=== PATIENT | male | born 1970 | race Caucasian/White ===

== ENCOUNTER 2021-03-16 14:57 | Emergency (ER) | payer OTHER, SELFPAY ==
[2021-03-16 15:16] VITALS: BP 166/93; PULSE 77; RESP 15; TEMP 36.7; O2SAT 98; BMI 34.8
--- NOTE | 2021-03-16 16:57 | ED_ITS ---
HPI - Abdominal Pain <DO Marta Saxena Last Filed: 03/17/21 07:25> General Chief Complaint: Abdominal Pain Stated Complaint: Gall Bladder Pain Time Seen by Provider: 03/16/21 16:48 Source: patient Mode of arrival: Ambulatory Limitations: no limitations History of Present Illness HPI narrative: Patient is a 51-year-old male presents with left-sided pain concerned that it might be his gallbladder. Has been ongoing for the last 3 days. Hurts every time he moves or breathes. It will come last night when he rolled over it. However today he is feeling little bit nauseated any had small episode chest discomfort. He has no prior history of coronary artery disease. He is not wanting her needing anything for nausea or pain at this time. The patient is also complaining of increased thirst, he thought it was just due to the heat however has continued. No prior history of diabetes. Related Data Allergies Allergy/AdvReac Type Severity Reaction Status Date / Time No Known Drug Allergies Allergy Verified 03/16/21 15:21 Review of Systems <DO Marta Saxena Last Filed: 03/17/21 07:25> Review of Systems Narrative: GENERAL: Denies chills, fatigue, malaise, fever, sweats, travel HEENT: Denies sinus pain, ear pain, sore throat, difficulty swallowing, neck pain RESPIRATORY: Denies dyspnea, cough, wheezing, hemoptysis, sputum. CARDIOVASCULAR: Denies chest pain, palpitations, orthopnea, edema GASTROINTESTINAL: Left upper quadrant pain, see HPI : Denies dysuria, frequency, incontinence, hematuria, urinary retention, flank pain. MUSCULOSKELETAL: Denies weakness, joint pain, or bony pain SKIN: No rash, no erythema, no pruritus NEUROLOGIC: Denies weakness, dizziness, headache, numbness, change in speech, confusion PSYCHIATRIC: No concerning psychosocial issues. 12 point review of systems is negative except for those stated above and HPI Patient History <DO Marta Saxena Last Filed: 03/17/21 07:25> Social History Smoking Status: Never smoker Smoking Status: Never smoker alcohol intake frequency: 3 or more drinks per day Substance Use Type: does not use Exam <DO Marta Saxena Last Filed: 03/17/21 07:25> Initial Vital Signs Initial Vital Signs: Vital Signs Temperature 98.0 F 03/16/21 15:16 Pulse Rate 77 03/16/21 15:16 Respiratory Rate 15 03/16/21 15:16 Blood Pressure 166/93 H 03/16/21 15:16 Pulse Oximetry 98 03/16/21 15:16 GENERAL: Alert pleasant 51-year-old male and in no acute distress. HEENT: Head atraumatic,EOMI, pupils reactive, face symmetric, moist mucous membranes CARDIOVASCULAR: Regular rate and rhythm without murmurs, rubs or gallops. RESPIRATORY: Breath sounds equal bilaterally, no wheezes rales or rhonchi. ABDOMEN: Soft, tender in left upper quadrant reproducible with palpation no guarding or rebound no splenomegaly negative right upper quadrant pain no Veras sign EXTREMITIES: Normal range of motion, no clubbing or edema. Neurovascularly intact NEUROLOGICAL: Alert and oriented x4.Normal gait and speech. SKIN: Warm, dry, no laceration, no petechiae, no rashes or lesions. <Devaughn Rader DO - Last Filed: 03/17/21 06:17> Initial Vital Signs Initial Vital Signs: Vital Signs Temperature 98.0 F 03/16/21 15:16 Pulse Rate 77 03/16/21 15:16 Respiratory Rate 15 03/16/21 15:16 Blood Pressure 166/93 H 03/16/21 15:16 Pulse Oximetry 98 03/16/21 15:16 Course <Radha Ibarra DO - Last Filed: 03/17/21 07:25> Orders Ordered: ED Orders 03/16/21 16:57 EKG-12 Lead Stat 03/16/21 16:58 XR chest 2V Stat 03/16/21 17:26 Complete Blood Count AUTO DIFF Stat Comprehensive Metabolic Panel Stat Lipase Stat Troponin & CK Cardiac Panel Stat Vital Signs Vital signs: Vital Signs - 8 hr 03/16/21 15:16 Temperature 98.0 F Pulse Rate 77 Respiratory Rate 15 Blood Pressure 166/93 H Pulse Oximetry 98 <Devaughn Rader DO - Last Filed: 03/17/21 06:17> Course Course Narrative: Initially patient was signed out to me by daytime provider but final disposition was settled prior to my caring for the patient Orders Ordered: ED Orders 03/16/21 16:57 EKG-12 Lead Stat 03/16/21 16:58 XR chest 2V Stat 03/16/21 17:26 Complete Blood Count AUTO DIFF Stat Comprehensive Metabolic Panel Stat Lipase Stat Troponin & CK Cardiac Panel Stat Vital Signs Vital signs: Vital Signs - 8 hr 03/16/21 15:16 Temperature 98.0 F Pulse Rate 77 Respiratory Rate 15 Blood Pressure 166/93 H Pulse Oximetry 98 MDM - Abdominal Pain <Radha Fred, - Last Filed: 03/17/21 07:25> Lab Data Result diagrams: 03/16/21 17:26 03/16/21 17:26 Labs: Lab Results 03/16/21 03/16/21 Range/Units 17:26 17:26 WBC 7.5 (4.5-11.0) X10^3/uL RBC 4.47 L (4.5-5.9) X10^6/uL Hgb 14.3 (13.5-17.5) g/dL Hct 41.8 (41-53) % MCV 93.4 (80-100) fL MCH 32.1 (26-34) PG MCHC 34.3 (30-36) % RDW 13.1 (11.6-14.8) % Plt Count 167 (150-400) X10^3/uL Neut % (Auto) 58.5 (50-75) % Lymph % (Auto) 28.3 (25-40) % [place] % (Auto) 11.2 (3-14) % Eos % (Auto) 1.5 L (2-4) % Baso % (Auto) 0.5 (0-2) % Neut # (Auto) 4400 (6314-8558) /uL Lymph # (Auto) 2100 (5550-4533) /uL [place] # (Auto) 800 (0-900) /uL Eos # (Auto) 100 (0-450) /uL Baso # (Auto) 0 (0-100) /uL Sodium 138 (137-145) mmol/L Potassium 3.9 (3.4-5.1) mmol/L Chloride 103 (98-107) mmol/L Carbon Dioxide 28 (22-32) mmol/L BUN 16 (9-20) mg/dL Creatinine 0.64 L (0.66-1.25) mg/dL Estimated GFR > 60.0 (>60) mL/min BUN/Creatinine Ratio 25.0 H (6-22) Glucose 107 H (70-100) mg/dL Calcium 9.8 (8.4-10.2) mg/dL Total Bilirubin 0.9 (0.2-1.3) mg/dL AST 53 (17-59) IU/L ALT 28 (<50) IU/L Alkaline Phosphatase 67 (38-126) U/L Total Creatine Kinase 202 H (55-170) U/L CK-MB (CK-2) 0.90 (<2.37) ng/mL CK-MB (CK-2) Rel Index 0.4 L (1.5-5.0) % Troponin I < 0.012 (0.01-0.034) ng/mL Total Protein 8.2 (6.3-8.2) g/dL Albumin 4.5 (3.5-5.0) g/dL Globulin 3.7 (1.7-4.1) g/dL Albumin/Globulin Ratio 1.2 (1.0-2.8) Lipase 112 (23-300) U/L Imaging Data Chest x-ray: Radiologist's Impression: PROCEDURE: XR CHEST 2V INDICATIONS: left sided pain TECHNIQUE: 2 views of the chest were acquired. COMPARISON: None. FINDINGS: Surgical changes and devices: None. Lungs and pleura: Lungs are clear. No pleural effusions or pneumothorax. Mediastinum: Mediastinal contours are normal. Heart size is normal. Bones and chest wall: No suspicious bony abnormalities. Soft tissues appear unremarkable. IMPRESSION: No evidence acute pulmonary process. Dictated by: Tanner Amaral M.D. on 03/16/2021 at 16:16 ECG Data Interpretation: Normal sinus rhythm rate 68 p.r. interval 170 QRS [address] changes or T-wave inversions, no priors to compare MDM Narrative Medical decision making narrative: Patient's pain is reproducible with movement has been ongoing for about 3 days. However with mild nausea and mild chest pain today chest pain workup was done. <Devaughn Rader DO - Last Filed: 03/17/21 06:17> Lab Data Labs: Lab Results 03/16/21 03/16/21 Range/Units 17:26 17:26 WBC 7.5 (4.5-11.0) X10^3/uL RBC 4.47 L (4.5-5.9) X10^6/uL Hgb 14.3 (13.5-17.5) g/dL Hct 41.8 (41-53) % MCV 93.4 (80-100) fL MCH 32.1 (26-34) PG MCHC 34.3 (30-36) % RDW 13.1 (11.6-14.8) % Plt Count 167 (150-400) X10^3/uL Neut % (Auto) 58.5 (50-75) % Lymph % (Auto) 28.3 (25-40) % [place] % (Auto) 11.2 (3-14) % Eos % (Auto) 1.5 L (2-4) % Baso % (Auto) 0.5 (0-2) % Neut # (Auto) 4400 (1675-8369) /uL Lymph # (Auto) 2100 (0062-7063) /uL [place] # (Auto) 800 (0-900) /uL Eos # (Auto) 100 (0-450) /uL Baso # (Auto) 0 (0-100) /uL Sodium 138 (137-145) mmol/L Potassium 3.9 (3.4-5.1) mmol/L Chloride 103 (98-107) mmol/L Carbon Dioxide 28 (22-32) mmol/L BUN 16 (9-20) mg/dL Creatinine 0.64 L (0.66-1.25) mg/dL Estimated GFR > 60.0 (>60) mL/min BUN/Creatinine Ratio 25.0 H (6-22) Glucose 107 H (70-100) mg/dL Calcium 9.8 (8.4-10.2) mg/dL Total Bilirubin 0.9 (0.2-1.3) mg/dL AST 53 (17-59) IU/L ALT 28 (<50) IU/L Alkaline Phosphatase 67 (38-126) U/L Total Creatine Kinase 202 H (55-170) U/L CK-MB (CK-2) 0.90 (<2.37) ng/mL CK-MB (CK-2) Rel Index 0.4 L (1.5-5.0) % Troponin I < 0.012 (0.01-0.034) ng/mL Total Protein 8.2 (6.3-8.2) g/dL Albumin 4.5 (3.5-5.0) g/dL Globulin 3.7 (1.7-4.1) g/dL Albumin/Globulin Ratio 1.2 (1.0-2.8) Lipase 112 (23-300) U/L Discharge Plan Departure Patient Disposition: Home Clinical Impression: Acute costochondritis Instructions: DI for Costochondritis Activity Restrictions/Additional Instructions: *You have been diagnosed with costochondritis *What to do: At this time blood work is overall reassuring. Exam suggests that this is likely musculoskeletal. Recommend ice or heat whichever makes it feels better *Continue to take medications as directed Ibuprofen 600 mg every 6-8 hours if needed for [id number] pain *Follow up with your primary care provider in 2-3 days *Return to ER if you should have increasing pain, shortness of breaths or any new, worsening or concerning symptoms
[2021-03-16 17:30] VITALS: BP 165/93; PULSE 69; RESP 18
[2021-03-16 17:45] LABS: Add Manual Diff / Slide Review NO; Basophils Absolute Auto 0 /uL (0-100); Basophils Percent Auto 0.5 % (0-2); Eosinophils Absolute Auto 100 /uL (0-450); Eosinophils Percent Auto 1.5 % (2-4); Hematocrit 41.8 % (41-53); Hemoglobin 14.3 g/dL (13.5-17.5); Lymphocytes Absolute Auto 2100 /uL (1100-4500); Lymphocytes Percent Auto 28.3 % (25-40); Mean Corpuscular HGB Conc 34.3 % (30-36); Mean Corpuscular Hemoglobin 32.1 PG (26-34); Mean Corpuscular Volume 93.4 fL (80-100); Monocytes Absolute Auto 800 /uL (0-900); Monocytes Percent Auto 11.2 % (3-14); Neutrophils Absolute Auto 4400 /uL (1500-7000); Neutrophils Percent Auto 58.5 % (50-75); Platelet Count 167 X10^3/uL (150-400); Red Blood Cell Count 4.47 X10^6/uL (4.5-5.9); Red Cell Distribution Width 13.1 % (11.6-14.8); White Blood Cell Count 7.5 X10^3/uL (4.5-11.0)
[2021-03-16 17:57] LABS: Alanine Aminotransferase 28 IU/L (<50); Albumin 4.5 g/dL (3.5-5.0); Albumin Globulin Ratio 1.2 (1.0-2.8); Alkaline Phosphatase 67 U/L (38-126); Aspartate Aminotransferase 53 IU/L (17-59); Bilirubin Total 0.9 mg/dL (0.2-1.3); Blood Urea Nitrogen 16 mg/dL (9-20); Calcium 9.8 mg/dL (8.4-10.2); Carbon Dioxide 28 mmol/L (22-32); Chloride 103 mmol/L (98-107); Creatine Kinase 202 U/L (55-170); Estimated Glomerular Filt Rate > 60.0 mL/min (>60); Globulin 3.7 g/dL (1.7-4.1); Glucose 107 mg/dL (70-100); Lipase 112 U/L (23-300); Potassium 3.9 mmol/L (3.4-5.1); Sodium 138 mmol/L (137-145); Total Protein 8.2 g/dL (6.3-8.2)
[2021-03-16 17:59] VITALS: BP 144/84; PULSE 69; RESP 16; O2SAT 99
[2021-03-16 18:08] LABS: Troponin I < 0.012 ng/mL (0.01-0.034)
[2021-03-16 18:13] LABS: CKMB % Relative Index 0.4 % (1.5-5.0); HEMOLYSIS 21 (0-50)
== END 2021-03-16 18:41 | disposition home or self-care (01) ==
PROVIDERS: Emergency Provider Emergency Medicine
DX: M94.0 Chondrocostal junction syndrome [Tietze] (principal); R11.0 Nausea
CPT/HCPCS: 36415; 71046; 80053; 82550; 82553; 83690; 84484; 85025; 93005; 99284

== ENCOUNTER 2022-06-14 20:36 | Emergency (ER) | payer OTHER, SELFPAY ==
[2022-06-14] VITALS (14 sets, daily range): BP systolic 136–212; BP diastolic 74–118; PULSE 70–80; RESP 14–22; TEMP 37.3; O2SAT 95–98; BMI 34.8
--- NOTE | 2022-06-14 20:46 | DI.RAD.S_ITS ---
PROCEDURE: XR CHEST 1V INDICATIONS: chest pain TECHNIQUE: One view of the chest was acquired. COMPARISON: [facility], CR, XR CHEST 2V, 03/16/2021, 16:55. FINDINGS: Surgical changes and devices: Surgical hardware in visualized mid cervical spine is seen. Lungs and pleura: Lungs are clear. No pleural effusions or pneumothorax. Mediastinum: Mediastinal contours appear normal. Heart size is normal. Bones and chest wall: No suspicious bony lesions. Overlying soft tissues appear unremarkable. IMPRESSION: No acute cardiopulmonary pathology. Dictated by: Raymond Briceño M.D. on 06/14/2022 at 21:02 Approved by: Raymond Briceño M.D. on 06/14/2022 at 21:03
--- NOTE | 2022-06-14 20:49 | PC.NURSE ---
pt c/o cp that started 2 days ago with dizziness, h/a, and diaphoresis, pt has been taking TUMS without relief. pt drinks alcohol 4-5 drinks/day but has not had any in the last 4 days pt took his BP tonight which was elevated so he decided to come to the ED
--- NOTE | 2022-06-14 20:58 | ED.CHESTPAIN ---
HPI - Chest Pain <Bernard Casanova DO - Last Filed: 06/16/22 04:14> General Chief Complaint: Chest Pain Stated Complaint: chest pain Time Seen by Provider: 06/14/22 20:51 Source: patient Mode of arrival: Ambulatory Limitations: no limitations Limitations: no limitations History of Present Illness HPI narrative: Patient is a 52-year-old male. Denies any prior diagnosed medical problems. Here for evaluation of shortness of breath and left-sided chest discomfort. He is had mild chest discomfort off and on for the past couple days however earlier in the day today the symptoms seem to get worse. He states that whenever he would walk he would get the discomfort. He was out to dinner with his and started to become short of breath. He stated that they walked back to the boat where they were staying this evening and his symptoms started to worsen. He had to stop because he was having problems breathing. They decided to come to the emergency department and as they were walking back down the dock he had a. Several more times. He states he has a fullness in his throat. Also had a period of time where he became diaphoretic and lightheaded. At the time of my exam he stated that his symptoms have greatly improved although he did have a small amount of chest discomfort. He was no longer short of breath. Patient denies any history of high blood pressure. Related Data Allergies Allergy/AdvReac Type Severity Reaction Status Date / Time No Known Drug Allergies Allergy Verified 03/16/21 15:21 Review of Systems <Bernard Casanova DO - Last Filed: 06/16/22 04:14> Review of Systems ROS Unobtainable: All systems reviewed & are unremarkable except as noted in HPI and below Patient History <Bernard Casanova DO - Last Filed: 06/16/22 04:14> Medical History Patient denies medical problems Social History Smoking Status: Never smoker Smoking Status: Never smoker alcohol intake frequency: 3 or more drinks per day Substance Use Type: does not use Exam <Bernard Casanova DO - Last Filed: 06/16/22 04:14> Initial Vital Signs Initial Vital Signs: Vital Signs Temperature 99.2 F 06/14/22 20:43 Pulse Rate 77 06/14/22 20:43 Respiratory Rate 22 06/14/22 20:43 Blood Pressure 212/118 H 06/14/22 20:43 Pulse Oximetry 98 06/14/22 20:43 Oxygen Delivery Method 06/14/22 20:43 Const General: cooperative, comfortable and well developed [facility] Head: normal to inspection and normocephalic Eyes General: Yes appearance normal, both eyes and all related structures Chest Chest: No crepitus and No tenderness Resp Effort & Inspection: normal respiratory effort Auscultation: clear to auscultation bilaterally Cardio Rate: regular rate Rhythm: regular rhythm GI Inspection: normal to inspection Palpation: soft and No tender Skin General: no rashes or lesions noted Neuro General: patient alert, patient awake, patient oriented x3 and moves all extremities Cognition: normal cognition Speech: speech normal Extrem General: normal to inspection, capillary refill normal and No edema Psych Appearance: grossly normal and well kempt <Delmy Orozco MD - Last Filed: 06/16/22 07:16> Initial Vital Signs Initial Vital Signs: Vital Signs Temperature 99.2 F 06/14/22 20:43 Pulse Rate 77 06/14/22 20:43 Respiratory Rate 22 06/14/22 20:43 Blood Pressure 212/118 H 06/14/22 20:43 Pulse Oximetry 98 06/14/22 20:43 Oxygen Delivery Method 06/14/22 20:43 Scores <Bernard Casanova DO - Last Filed: 06/16/22 04:14> HEART Score Heart Score history: Highly Suspicious Heart Score EKG: Non-Specific repolarization disturbance Heart Score Age: 45-64 years old Heart Score risk factors: No known risk factors Heart Score troponin: < or = to normal limit Heart Score Total: 4 <Delmy Orozco MD - Last Filed: 06/16/22 07:16> HEART Score Heart Score Total: 4 Course <Bernard Casanova DO - Last Filed: 06/16/22 04:14> Orders Ordered: ED Orders 06/16/22 04:29 Basic Metabolic Panel Stat Complete Blood Count AUTO DIFF Stat PTT [Partial Thromboplastin Time] Stat Troponin I Stat Discontinued Medications Aspirin (Aspirin 81 Mg Chew Tab) 324 mg PO NOW ONE Stop: 06/14/22 21:00 Last Admin: 06/14/22 21:13 Dose: 324 mg Documented By: NYDIA Bacitracin (Bacitracin Oint 0.9 Gm Pckt) 3 applic TOP NOW ONE Stop: 06/15/22 18:30 Last Admin: 06/15/22 19:33 Dose: Not Given Documented By: MAURA Heparin Sodium (Porcine) (Heparin 5,000 Unit/Ml Vial) 5,000 unit IV NOW ONE Stop: 06/14/22 21:36 Last Admin: 06/14/22 21:55 Dose: 5,000 unit Documented By: ASIA Heparin Sodium/Dextrose (Heparin Drip) 25,000 unit in 500 mls @ 27.216 mls/hr IV CONT COLE; Protocol Last Titration: 06/16/22 05:06 Dose: 10.98 units/kg/hr, 24.9 mls/hr Documented By: Titration: 06/15/22 22:28 Dose: 10.57 units/kg/hr, 23.977 mls/hr Documented By: Admin: 06/15/22 20:15 Dose: 10.13 units/kg/hr, 22.977 mls/hr Documented By: Titration: 06/15/22 20:15 Dose: 0 units/kg/hr, 0 mls/hr Documented By: Titration: 06/15/22 16:35 Dose: 10.13 units/kg/hr, 22.977 mls/hr Documented By: Titration: 06/15/22 10:38 Dose: 9.69 units/kg/hr, 21.977 mls/hr Documented By: Titration: 06/15/22 05:22 Dose: 9.26 units/kg/hr, 21 mls/hr Documented By: Titration: 06/15/22 04:20 Dose: 0 units/kg/hr, 0 mls/hr Documented By: Admin: 06/14/22 21:55 Dose: 12 units/kg/hr, 27.216 mls/hr Documented By: ASIA Heparin Sodium/Dextrose (Heparin Drip) 25,000 unit in 500 mls @ 22.974 mls/hr IV CONT COLE; Protocol Nitroglycerin (Nitroglycerin 0.4 Mg Sl Tab) 0.4 mg SL [id number] PRN PRN Reason: Chest Pain Vital Signs Vital signs: Vital Signs - 8 hr 06/15/22 23:30 06/16/22 00:00 06/16/22 00:00 Pulse Rate 72 67 Respiratory Rate 18 19 Blood Pressure 150/89 H Pulse Oximetry 95 96 Oxygen Delivery Method 06/16/22 00:30 06/16/22 01:00 06/16/22 01:00 Pulse Rate 62 63 Respiratory Rate 14 16 Blood Pressure 142/75 H Pulse Oximetry 94 95 Oxygen Delivery Method Room Air 06/16/22 01:30 06/16/22 02:00 06/16/22 02:00 Pulse Rate 58 L 65 Respiratory Rate 15 16 Blood Pressure 158/75 H Pulse Oximetry 94 94 Oxygen Delivery Method 06/16/22 02:30 06/16/22 03:00 06/16/22 03:00 Pulse Rate 62 69 76 Respiratory Rate 16 18 22 Blood Pressure 158/91 H Pulse Oximetry 98 98 97 Oxygen Delivery Method 06/16/22 03:30 06/16/22 04:00 06/16/22 04:00 Pulse Rate 67 62 Respiratory Rate 16 13 Blood Pressure 132/75 Pulse Oximetry 97 98 Oxygen Delivery Method 06/16/22 04:26 06/16/22 04:26 06/16/22 04:27 Pulse Rate 66 65 Respiratory Rate 16 11 L Blood Pressure 132/76 Pulse Oximetry 98 98 Oxygen Delivery Method 06/16/22 04:27 06/16/22 04:28 06/16/22 04:28 Pulse Rate 69 Respiratory Rate 16 Blood Pressure 133/75 137/78 Pulse Oximetry 97 Oxygen Delivery Method 06/16/22 04:30 06/16/22 05:00 06/16/22 05:00 Pulse Rate 66 56 L Respiratory Rate 15 13 Blood Pressure 123/81 Pulse Oximetry 97 96 Oxygen Delivery Method 06/16/22 05:30 06/16/22 06:00 06/16/22 06:00 Pulse Rate 69 66 Respiratory Rate 20 16 Blood Pressure 126/73 Pulse Oximetry 97 98 Oxygen Delivery Method <Delmy Orozco MD - Last Filed: 06/16/22 07:16> Orders Ordered: ED Orders 06/16/22 04:29 Basic Metabolic Panel Stat Complete Blood Count AUTO DIFF Stat PTT [Partial Thromboplastin Time] Stat Troponin I Stat Discontinued Medications Aspirin (Aspirin 81 Mg Chew Tab) 324 mg PO NOW ONE Stop: 06/14/22 21:00 Last Admin: 06/14/22 21:13 Dose: 324 mg Documented By: NYDIA Bacitracin (Bacitracin Oint 0.9 Gm Pckt) 3 applic TOP NOW ONE Stop: 06/15/22 18:30 Last Admin: 06/15/22 19:33 Dose: Not Given Documented By: MAURA Heparin Sodium (Porcine) (Heparin 5,000 Unit/Ml Vial) 5,000 unit IV NOW ONE Stop: 06/14/22 21:36 Last Admin: 06/14/22 21:55 Dose: 5,000 unit Documented By: ASIA Heparin Sodium/Dextrose (Heparin Drip) 25,000 unit in 500 mls @ 27.216 mls/hr IV CONT COLE; Protocol Last Titration: 06/16/22 05:06 Dose: 10.98 units/kg/hr, 24.9 mls/hr Documented By: Titration: 06/15/22 22:28 Dose: 10.57 units/kg/hr, 23.977 mls/hr Documented By: Admin: 06/15/22 20:15 Dose: 10.13 units/kg/hr, 22.977 mls/hr Documented By: Titration: 06/15/22 20:15 Dose: 0 units/kg/hr, 0 mls/hr Documented By: Titration: 06/15/22 16:35 Dose: 10.13 units/kg/hr, 22.977 mls/hr Documented By: Titration: 06/15/22 10:38 Dose: 9.69 units/kg/hr, 21.977 mls/hr Documented By: Titration: 06/15/22 05:22 Dose: 9.26 units/kg/hr, 21 mls/hr Documented By: Titration: 06/15/22 04:20 Dose: 0 units/kg/hr, 0 mls/hr Documented By: Admin: 06/14/22 21:55 Dose: 12 units/kg/hr, 27.216 mls/hr Documented By: ASIA Heparin Sodium/Dextrose (Heparin Drip) 25,000 unit in 500 mls @ 22.974 mls/hr IV CONT COLE; Protocol Nitroglycerin (Nitroglycerin 0.4 Mg Sl Tab) 0.4 mg SL [id number] PRN PRN Reason: Chest Pain Vital Signs Vital signs: Vital Signs - 8 hr 06/15/22 23:30 06/16/22 00:00 06/16/22 00:00 Pulse Rate 72 67 Respiratory Rate 18 19 Blood Pressure 150/89 H Pulse Oximetry 95 96 Oxygen Delivery Method 06/16/22 00:30 06/16/22 01:00 06/16/22 01:00 Pulse Rate 62 63 Respiratory Rate 14 16 Blood Pressure 142/75 H Pulse Oximetry 94 95 Oxygen Delivery Method Room Air 06/16/22 01:30 06/16/22 02:00 06/16/22 02:00 Pulse Rate 58 L 65 Respiratory Rate 15 16 Blood Pressure 158/75 H Pulse Oximetry 94 94 Oxygen Delivery Method 06/16/22 02:30 06/16/22 03:00 06/16/22 03:00 Pulse Rate 62 69 76 Respiratory Rate 16 18 22 Blood Pressure 158/91 H Pulse Oximetry 98 98 97 Oxygen Delivery Method 06/16/22 03:30 06/16/22 04:00 06/16/22 04:00 Pulse Rate 67 62 Respiratory Rate 16 13 Blood Pressure 132/75 Pulse Oximetry 97 98 Oxygen Delivery Method 06/16/22 04:26 06/16/22 04:26 06/16/22 04:27 Pulse Rate 66 65 Respiratory Rate 16 11 L Blood Pressure 132/76 Pulse Oximetry 98 98 Oxygen Delivery Method 06/16/22 04:27 06/16/22 04:28 06/16/22 04:28 Pulse Rate 69 Respiratory Rate 16 Blood Pressure 133/75 137/78 Pulse Oximetry 97 Oxygen Delivery Method 06/16/22 04:30 06/16/22 05:00 06/16/22 05:00 Pulse Rate 66 56 L Respiratory Rate 15 13 Blood Pressure 123/81 Pulse Oximetry 97 96 Oxygen Delivery Method 06/16/22 05:30 06/16/22 06:00 06/16/22 06:00 Pulse Rate 69 66 Respiratory Rate 20 16 Blood Pressure 126/73 Pulse Oximetry 97 98 Oxygen Delivery Method MDM - Chest Pain <Bernard Casanova DO - Last Filed: 06/16/22 04:14> Lab Data Attestation: I reviewed the patient's lab results. Result diagrams: 06/16/22 04:29 06/16/22 04:29 Labs: Lab Results 06/14/22 06/14/22 06/14/22 Range/Units 20:40 20:40 20:40 WBC 11.1 H (4.5-11.0) X10^3/uL RBC 4.94 (4.5-5.9) X10^6/uL Hgb 16.0 (13.5-17.5) g/dL Hct 46.1 (41-53) % MCV 93.3 (80-100) fL MCH 32.3 (26-34) PG MCHC 34.7 (30-36) % RDW 12.8 (11.6-14.8) % Plt Count 173 (150-400) X10^3/uL Neut % (Auto) 57.7 (50-75) % Lymph % (Auto) 29.7 (25-40) % [place] % (Auto) 10.1 (3-14) % Eos % (Auto) 1.9 L (2-4) % Baso % (Auto) 0.6 (0-2) % Neut # (Auto) 6400 (3670-5839) /uL Lymph # (Auto) 3300 (6882-9980) /uL [place] # (Auto) 1100 H (0-900) /uL Eos # (Auto) 200 (0-450) /uL Baso # (Auto) 100 (0-100) /uL PT 12.9 H (10.1-12.7) SECONDS INR 1.1 (0.9-1.3) APTT (26-36) SECONDS Sodium 136 L (137-145) mmol/L Potassium 3.7 (3.4-5.1) mmol/L Chloride 99 (98-107) mmol/L Carbon Dioxide 26 (22-32) mmol/L BUN 11 (9-20) mg/dL Creatinine 0.81 (0.66-1.25) mg/dL Estimated GFR > 60 (>60) mL/min BUN/Creatinine Ratio 13.6 (6-22) Glucose 117 H (70-100) mg/dL Calcium 9.9 (8.4-10.2) mg/dL Magnesium 2.0 (1.6-2.3) mg/dL Total Bilirubin 1.2 (0.2-1.3) mg/dL AST 57 (17-59) IU/L ALT 38 (<50) IU/L Alkaline Phosphatase 52 (38-126) U/L Total Creatine Kinase 107 (55-170) U/L CK-MB (CK-2) 1.06 (<2.37) ng/mL CK-MB (CK-2) Rel Index 1.0 L (1.5-5.0) % Troponin I 0.035 H (0.01-0.034) ng/mL Total Protein 8.8 H (6.3-8.2) g/dL Albumin 4.7 (3.5-5.0) g/dL Globulin 4.1 (1.7-4.1) g/dL Albumin/Globulin Ratio 1.1 (1.0-2.8) Lipase 135 (23-300) U/L SARS-CoV-2 (PCR) (Negative) 06/14/22 06/14/22 06/14/22 Range/Units 20:40 21:42 22:50 WBC (4.5-11.0) X10^3/uL RBC (4.5-5.9) X10^6/uL Hgb (13.5-17.5) g/dL Hct (41-53) % MCV (80-100) fL MCH (26-34) PG MCHC (30-36) % RDW (11.6-14.8) % Plt Count (150-400) X10^3/uL Neut % (Auto) (50-75) % Lymph % (Auto) (25-40) % [place] % (Auto) (3-14) % Eos % (Auto) (2-4) % Baso % (Auto) (0-2) % Neut # (Auto) (2735-7917) /uL Lymph # (Auto) (2397-8884) /uL [place] # (Auto) (0-900) /uL Eos # (Auto) (0-450) /uL Baso # (Auto) (0-100) /uL PT (10.1-12.7) SECONDS INR (0.9-1.3) APTT 33 (26-36) SECONDS Sodium (137-145) mmol/L Potassium (3.4-5.1) mmol/L Chloride (98-107) mmol/L Carbon Dioxide (22-32) mmol/L BUN (9-20) mg/dL Creatinine (0.66-1.25) mg/dL Estimated GFR (>60) mL/min BUN/Creatinine Ratio (6-22) Glucose (70-100) mg/dL Calcium (8.4-10.2) mg/dL Magnesium (1.6-2.3) mg/dL Total Bilirubin (0.2-1.3) mg/dL AST (17-59) IU/L ALT (<50) IU/L Alkaline Phosphatase (38-126) U/L Total Creatine Kinase 93 (55-170) U/L CK-MB (CK-2) TNP (<2.37) ng/mL CK-MB (CK-2) Rel Index TNP (1.5-5.0) % Troponin I 0.060 H (0.01-0.034) ng/mL Total Protein (6.3-8.2) g/dL Albumin (3.5-5.0) g/dL Globulin (1.7-4.1) g/dL Albumin/Globulin Ratio (1.0-2.8) Lipase (23-300) U/L SARS-CoV-2 (PCR) Negative (Negative) 06/15/22 06/15/22 06/15/22 Range/Units 03:45 03:45 09:58 WBC (4.5-11.0) X10^3/uL RBC (4.5-5.9) X10^6/uL Hgb (13.5-17.5) g/dL Hct (41-53) % MCV (80-100) fL MCH (26-34) PG MCHC (30-36) % RDW (11.6-14.8) % Plt Count (150-400) X10^3/uL Neut % (Auto) (50-75) % Lymph % (Auto) (25-40) % [place] % (Auto) (3-14) % Eos % (Auto) (2-4) % Baso % (Auto) (0-2) % Neut # (Auto) (2824-9767) /uL Lymph # (Auto) (7226-4599) /uL [place] # (Auto) (0-900) /uL Eos # (Auto) (0-450) /uL Baso # (Auto) (0-100) /uL PT (10.1-12.7) SECONDS INR (0.9-1.3) APTT 158 H* D 45 H D (26-36) SECONDS Sodium (137-145) mmol/L Potassium (3.4-5.1) mmol/L Chloride (98-107) mmol/L Carbon Dioxide (22-32) mmol/L BUN (9-20) mg/dL Creatinine (0.66-1.25) mg/dL Estimated GFR (>60) mL/min BUN/Creatinine Ratio (6-22) Glucose (70-100) mg/dL Calcium (8.4-10.2) mg/dL Magnesium (1.6-2.3) mg/dL Total Bilirubin (0.2-1.3) mg/dL AST (17-59) IU/L ALT (<50) IU/L Alkaline Phosphatase (38-126) U/L Total Creatine Kinase 74 (55-170) U/L CK-MB (CK-2) TNP (<2.37) ng/mL CK-MB (CK-2) Rel Index TNP (1.5-5.0) % Troponin I 0.049 H (0.01-0.034) ng/mL Total Protein (6.3-8.2) g/dL Albumin (3.5-5.0) g/dL Globulin (1.7-4.1) g/dL Albumin/Globulin Ratio (1.0-2.8) Lipase (23-300) U/L SARS-CoV-2 (PCR) (Negative) 06/15/22 06/15/22 06/15/22 Range/Units 09:58 09:58 16:05 WBC 6.4 (4.5-11.0) X10^3/uL RBC 4.94 (4.5-5.9) X10^6/uL Hgb 16.1 (13.5-17.5) g/dL Hct 46.1 (41-53) % MCV 93.4 (80-100) fL MCH 32.5 (26-34) PG MCHC 34.8 (30-36) % RDW 12.6 (11.6-14.8) % Plt Count 140 L (150-400) X10^3/uL Neut % (Auto) 51.4 (50-75) % Lymph % (Auto) 34.7 (25-40) % [place] % (Auto) 10.6 (3-14) % Eos % (Auto) 2.6 (2-4) % Baso % (Auto) 0.7 (0-2) % Neut # (Auto) 3300 (3199-4877) /uL Lymph # (Auto) 2200 (0547-5791) /uL [place] # (Auto) 700 (0-900) /uL Eos # (Auto) 200 (0-450) /uL Baso # (Auto) 0 (0-100) /uL PT (10.1-12.7) SECONDS INR (0.9-1.3) APTT 44 H (26-36) SECONDS Sodium 138 (137-145) mmol/L Potassium 4.1 (3.4-5.1) mmol/L Chloride 103 (98-107) mmol/L Carbon Dioxide 28 (22-32) mmol/L BUN 11 (9-20) mg/dL Creatinine 0.73 (0.66-1.25) mg/dL Estimated GFR > 60 (>60) mL/min BUN/Creatinine Ratio 15.1 (6-22) Glucose 110 H (70-100) mg/dL Calcium 9.4 (8.4-10.2) mg/dL Magnesium (1.6-2.3) mg/dL Total Bilirubin (0.2-1.3) mg/dL AST (17-59) IU/L ALT (<50) IU/L Alkaline Phosphatase (38-126) U/L Total Creatine Kinase (55-170) U/L CK-MB (CK-2) (<2.37) ng/mL CK-MB (CK-2) Rel Index (1.5-5.0) % Troponin I 0.021 (0.01-0.034) ng/mL Total Protein (6.3-8.2) g/dL Albumin (3.5-5.0) g/dL Globulin (1.7-4.1) g/dL Albumin/Globulin Ratio (1.0-2.8) Lipase (23-300) U/L SARS-CoV-2 (PCR) (Negative) 06/15/22 06/16/22 06/16/22 Range/Units 21:54 04:29 04:29 WBC 7.5 (4.5-11.0) X10^3/uL RBC 4.64 (4.5-5.9) X10^6/uL Hgb 14.9 (13.5-17.5) g/dL Hct 43.3 (41-53) % MCV 93.3 (80-100) fL MCH 32.1 (26-34) PG MCHC 34.4 (30-36) % RDW 12.6 (11.6-14.8) % Plt Count 138 L (150-400) X10^3/uL Neut % (Auto) 46.7 L (50-75) % Lymph % (Auto) 38.3 (25-40) % [place] % (Auto) 11.1 (3-14) % Eos % (Auto) 3.4 (2-4) % Baso % (Auto) 0.5 (0-2) % Neut # (Auto) 3500 (2731-1379) /uL Lymph # (Auto) 2900 (8945-2623) /uL [place] # (Auto) 800 (0-900) /uL Eos # (Auto) 300 (0-450) /uL Baso # (Auto) 0 (0-100) /uL PT (10.1-12.7) SECONDS INR (0.9-1.3) APTT 40 H 41 H (26-36) SECONDS Sodium (137-145) mmol/L Potassium (3.4-5.1) mmol/L Chloride (98-107) mmol/L Carbon Dioxide (22-32) mmol/L BUN (9-20) mg/dL Creatinine (0.66-1.25) mg/dL Estimated GFR (>60) mL/min BUN/Creatinine Ratio (6-22) Glucose (70-100) mg/dL Calcium (8.4-10.2) mg/dL Magnesium (1.6-2.3) mg/dL Total Bilirubin (0.2-1.3) mg/dL AST (17-59) IU/L ALT (<50) IU/L Alkaline Phosphatase (38-126) U/L Total Creatine Kinase (55-170) U/L CK-MB (CK-2) (<2.37) ng/mL CK-MB (CK-2) Rel Index (1.5-5.0) % Troponin I (0.01-0.034) ng/mL Total Protein (6.3-8.2) g/dL Albumin (3.5-5.0) g/dL Globulin (1.7-4.1) g/dL Albumin/Globulin Ratio (1.0-2.8) Lipase (23-300) U/L SARS-CoV-2 (PCR) (Negative) 06/16/22 Range/Units 04:29 WBC (4.5-11.0) X10^3/uL RBC (4.5-5.9) X10^6/uL Hgb (13.5-17.5) g/dL Hct (41-53) % MCV (80-100) fL MCH (26-34) PG MCHC (30-36) % RDW (11.6-14.8) % Plt Count (150-400) X10^3/uL Neut % (Auto) (50-75) % Lymph % (Auto) (25-40) % [place] % (Auto) (3-14) % Eos % (Auto) (2-4) % Baso % (Auto) (0-2) % Neut # (Auto) (8163-9261) /uL Lymph # (Auto) (3714-2605) /uL [place] # (Auto) (0-900) /uL Eos # (Auto) (0-450) /uL Baso # (Auto) (0-100) /uL PT (10.1-12.7) SECONDS INR (0.9-1.3) APTT (26-36) SECONDS Sodium 135 L (137-145) mmol/L Potassium 3.9 (3.4-5.1) mmol/L Chloride 104 (98-107) mmol/L Carbon Dioxide 24 (22-32) mmol/L BUN 13 (9-20) mg/dL Creatinine 0.76 (0.66-1.25) mg/dL Estimated GFR > 60 (>60) mL/min BUN/Creatinine Ratio 17.1 (6-22) Glucose 113 H (70-100) mg/dL Calcium 9.0 (8.4-10.2) mg/dL Magnesium (1.6-2.3) mg/dL Total Bilirubin (0.2-1.3) mg/dL AST (17-59) IU/L ALT (<50) IU/L Alkaline Phosphatase (38-126) U/L Total Creatine Kinase (55-170) U/L CK-MB (CK-2) (<2.37) ng/mL CK-MB (CK-2) Rel Index (1.5-5.0) % Troponin I 0.015 (0.01-0.034) ng/mL Total Protein (6.3-8.2) g/dL Albumin (3.5-5.0) g/dL Globulin (1.7-4.1) g/dL Albumin/Globulin Ratio (1.0-2.8) Lipase (23-300) U/L SARS-CoV-2 (PCR) (Negative) Imaging Data Chest x-ray: Radiologist's Impression: [address] [address] XRay Report Signed Patient: Fox Garcia MR#: [id number] : 1970 Acct:[id number] Age/Sex: 52 / M Date of Service: 06/14/22 Loc: ED Accession Number: [id number] ?? Procedure: XR chest 1V Ordering Provider: Bernard Casanova D.O. PROCEDURE:? XR CHEST 1V ? INDICATIONS:? chest pain ? TECHNIQUE:? One view of the chest was acquired.? ? COMPARISON:? [facility], , XR CHEST 2V, 03/16/2021, 16:55. ? FINDINGS:? ? Surgical changes and devices:? Surgical hardware in visualized mid cervical spine is seen.? ? Lungs and pleura:? Lungs are clear.? No pleural effusions or pneumothorax.? ? Mediastinum:? Mediastinal contours appear normal.? Heart size is normal.? ? Bones and chest wall:? No suspicious bony lesions.? Overlying soft tissues appear unremarkable.? ? IMPRESSION:? No acute cardiopulmonary pathology. ? ? Dictated by: Raymond Brcieño M.D. on 06/14/2022 at 21:02 ? ? Approved by: Raymond Briceño M.D. on 06/14/2022 at 21:03?? ECG Data Interpretation: Presentation EKG Sinus rhythm Ventricular rate is 77 Normal QRS Normal QTC No ST elevations Repeat EKG Sinus rhythm Ventricular rate of 78 Normal QRS Normal QTC LVH New biphasic T-wave in V2 New T-wave inversions V3 V4 V5 V6 No ST elevations MDM Narrative Medical decision making narrative: Patient is symptom free. Blood pressure has improved. Troponins now downtrending. Remains on heparin. Morning labs with repeat EKG ordered for later today when he has his PTT drawn because of his heparin. Attempted to contact multiple places for transfer for Cardiology and presumed intervention given his presentation however no facilities had bed availability. He is on wait list that [facility] and also [facility]. Will continue to keep emergency department until placement can be found. Care turned over to day provider for disposition. 930 06/15 Care is assumed. Phone call to [facility], they will look of bed availability and return call. EKG is unchanged. Labs are pending this morning. Patient remains pain-free at this time. Dr Casanova: overnight 06/15-06/16: Reviewed the daily events. He continues to be on heparin. Troponin is now negative. T-wave inversions have now normalized. He continues to be asymptomatic. Somewhat hypertensive with a systolic in the 140s. Did discuss the case with Cardiology at [facility]. Then discussed the case with Magalie with Internal Medicine is a [place] who accepts the patient in transfer. Patient is stable for transport. <Delmy Orozco MD - Last Filed: 06/16/22 07:16> Lab Data Labs: Lab Results 06/14/22 06/14/22 06/14/22 Range/Units 20:40 20:40 20:40 WBC 11.1 H (4.5-11.0) X10^3/uL RBC 4.94 (4.5-5.9) X10^6/uL Hgb 16.0 (13.5-17.5) g/dL Hct 46.1 (41-53) % MCV 93.3 (80-100) fL MCH 32.3 (26-34) PG MCHC 34.7 (30-36) % RDW 12.8 (11.6-14.8) % Plt Count 173 (150-400) X10^3/uL Neut % (Auto) 57.7 (50-75) % Lymph % (Auto) 29.7 (25-40) % [place] % (Auto) 10.1 (3-14) % Eos % (Auto) 1.9 L (2-4) % Baso % (Auto) 0.6 (0-2) % Neut # (Auto) 6400 (9373-2190) /uL Lymph # (Auto) 3300 (4954-2035) /uL [place] # (Auto) 1100 H (0-900) /uL Eos # (Auto) 200 (0-450) /uL Baso # (Auto) 100 (0-100) /uL PT 12.9 H (10.1-12.7) SECONDS INR 1.1 (0.9-1.3) APTT (26-36) SECONDS Sodium 136 L (137-145) mmol/L Potassium 3.7 (3.4-5.1) mmol/L Chloride 99 (98-107) mmol/L Carbon Dioxide 26 (22-32) mmol/L BUN 11 (9-20) mg/dL Creatinine 0.81 (0.66-1.25) mg/dL Estimated GFR > 60 (>60) mL/min BUN/Creatinine Ratio 13.6 (6-22) Glucose 117 H (70-100) mg/dL Calcium 9.9 (8.4-10.2) mg/dL Magnesium 2.0 (1.6-2.3) mg/dL Total Bilirubin 1.2 (0.2-1.3) mg/dL AST 57 (17-59) IU/L ALT 38 (<50) IU/L Alkaline Phosphatase 52 (38-126) U/L Total Creatine Kinase 107 (55-170) U/L CK-MB (CK-2) 1.06 (<2.37) ng/mL CK-MB (CK-2) Rel Index 1.0 L (1.5-5.0) % Troponin I 0.035 H (0.01-0.034) ng/mL Total Protein 8.8 H (6.3-8.2) g/dL Albumin 4.7 (3.5-5.0) g/dL Globulin 4.1 (1.7-4.1) g/dL Albumin/Globulin Ratio 1.1 (1.0-2.8) Lipase 135 (23-300) U/L SARS-CoV-2 (PCR) (Negative) 06/14/22 06/14/22 06/14/22 Range/Units 20:40 21:42 22:50 WBC (4.5-11.0) X10^3/uL RBC (4.5-5.9) X10^6/uL Hgb (13.5-17.5) g/dL Hct (41-53) % MCV (80-100) fL MCH (26-34) PG MCHC (30-36) % RDW (11.6-14.8) % Plt Count (150-400) X10^3/uL Neut % (Auto) (50-75) % Lymph % (Auto) (25-40) % [place] % (Auto) (3-14) % Eos % (Auto) (2-4) % Baso % (Auto) (0-2) % Neut # (Auto) (6880-0898) /uL Lymph # (Auto) (5559-9248) /uL [place] # (Auto) (0-900) /uL Eos # (Auto) (0-450) /uL Baso # (Auto) (0-100) /uL PT (10.1-12.7) SECONDS INR (0.9-1.3) APTT 33 (26-36) SECONDS Sodium (137-145) mmol/L Potassium (3.4-5.1) mmol/L Chloride (98-107) mmol/L Carbon Dioxide (22-32) mmol/L BUN (9-20) mg/dL Creatinine (0.66-1.25) mg/dL Estimated GFR (>60) mL/min BUN/Creatinine Ratio (6-22) Glucose (70-100) mg/dL Calcium (8.4-10.2) mg/dL Magnesium (1.6-2.3) mg/dL Total Bilirubin (0.2-1.3) mg/dL AST (17-59) IU/L ALT (<50) IU/L Alkaline Phosphatase (38-126) U/L Total Creatine Kinase 93 (55-170) U/L CK-MB (CK-2) TNP (<2.37) ng/mL CK-MB (CK-2) Rel Index TNP (1.5-5.0) % Troponin I 0.060 H (0.01-0.034) ng/mL Total Protein (6.3-8.2) g/dL Albumin (3.5-5.0) g/dL Globulin (1.7-4.1) g/dL Albumin/Globulin Ratio (1.0-2.8) Lipase (23-300) U/L SARS-CoV-2 (PCR) Negative (Negative) 06/15/22 06/15/22 06/15/22 Range/Units 03:45 03:45 09:58 WBC (4.5-11.0) X10^3/uL RBC (4.5-5.9) X10^6/uL Hgb (13.5-17.5) g/dL Hct (41-53) % MCV (80-100) fL MCH (26-34) PG MCHC (30-36) % RDW (11.6-14.8) % Plt Count (150-400) X10^3/uL Neut % (Auto) (50-75) % Lymph % (Auto) (25-40) % [place] % (Auto) (3-14) % Eos % (Auto) (2-4) % Baso % (Auto) (0-2) % Neut # (Auto) (3815-6755) /uL Lymph # (Auto) (2932-8248) /uL [place] # (Auto) (0-900) /uL Eos # (Auto) (0-450) /uL Baso # (Auto) (0-100) /uL PT (10.1-12.7) SECONDS INR (0.9-1.3) APTT 158 H* D 45 H D (26-36) SECONDS Sodium (137-145) mmol/L Potassium (3.4-5.1) mmol/L Chloride (98-107) mmol/L Carbon Dioxide (22-32) mmol/L BUN (9-20) mg/dL Creatinine (0.66-1.25) mg/dL Estimated GFR (>60) mL/min BUN/Creatinine Ratio (6-22) Glucose (70-100) mg/dL Calcium (8.4-10.2) mg/dL Magnesium (1.6-2.3) mg/dL Total Bilirubin (0.2-1.3) mg/dL AST (17-59) IU/L ALT (<50) IU/L Alkaline Phosphatase (38-126) U/L Total Creatine Kinase 74 (55-170) U/L CK-MB (CK-2) TNP (<2.37) ng/mL CK-MB (CK-2) Rel Index TNP (1.5-5.0) % Troponin I 0.049 H (0.01-0.034) ng/mL Total Protein (6.3-8.2) g/dL Albumin (3.5-5.0) g/dL Globulin (1.7-4.1) g/dL Albumin/Globulin Ratio (1.0-2.8) Lipase (23-300) U/L SARS-CoV-2 (PCR) (Negative) 06/15/22 06/15/22 06/15/22 Range/Units 09:58 09:58 16:05 WBC 6.4 (4.5-11.0) X10^3/uL RBC 4.94 (4.5-5.9) X10^6/uL Hgb 16.1 (13.5-17.5) g/dL Hct 46.1 (41-53) % MCV 93.4 (80-100) fL MCH 32.5 (26-34) PG MCHC 34.8 (30-36) % RDW 12.6 (11.6-14.8) % Plt Count 140 L (150-400) X10^3/uL Neut % (Auto) 51.4 (50-75) % Lymph % (Auto) 34.7 (25-40) % [place] % (Auto) 10.6 (3-14) % Eos % (Auto) 2.6 (2-4) % Baso % (Auto) 0.7 (0-2) % Neut # (Auto) 3300 (8861-9345) /uL Lymph # (Auto) 2200 (0917-8520) /uL [place] # (Auto) 700 (0-900) /uL Eos # (Auto) 200 (0-450) /uL Baso # (Auto) 0 (0-100) /uL PT (10.1-12.7) SECONDS INR (0.9-1.3) APTT 44 H (26-36) SECONDS Sodium 138 (137-145) mmol/L Potassium 4.1 (3.4-5.1) mmol/L Chloride 103 (98-107) mmol/L Carbon Dioxide 28 (22-32) mmol/L BUN 11 (9-20) mg/dL Creatinine 0.73 (0.66-1.25) mg/dL Estimated GFR > 60 (>60) mL/min BUN/Creatinine Ratio 15.1 (6-22) Glucose 110 H (70-100) mg/dL Calcium 9.4 (8.4-10.2) mg/dL Magnesium (1.6-2.3) mg/dL Total Bilirubin (0.2-1.3) mg/dL AST (17-59) IU/L ALT (<50) IU/L Alkaline Phosphatase (38-126) U/L Total Creatine Kinase (55-170) U/L CK-MB (CK-2) (<2.37) ng/mL CK-MB (CK-2) Rel Index (1.5-5.0) % Troponin I 0.021 (0.01-0.034) ng/mL Total Protein (6.3-8.2) g/dL Albumin (3.5-5.0) g/dL Globulin (1.7-4.1) g/dL Albumin/Globulin Ratio (1.0-2.8) Lipase (23-300) U/L SARS-CoV-2 (PCR) (Negative) 06/15/22 06/16/22 06/16/22 Range/Units 21:54 04:29 04:29 WBC 7.5 (4.5-11.0) X10^3/uL RBC 4.64 (4.5-5.9) X10^6/uL Hgb 14.9 (13.5-17.5) g/dL Hct 43.3 (41-53) % MCV 93.3 (80-100) fL MCH 32.1 (26-34) PG MCHC 34.4 (30-36) % RDW 12.6 (11.6-14.8) % Plt Count 138 L (150-400) X10^3/uL Neut % (Auto) 46.7 L (50-75) % Lymph % (Auto) 38.3 (25-40) % [place] % (Auto) 11.1 (3-14) % Eos % (Auto) 3.4 (2-4) % Baso % (Auto) 0.5 (0-2) % Neut # (Auto) 3500 (7500-4326) /uL Lymph # (Auto) 2900 (4703-6234) /uL [place] # (Auto) 800 (0-900) /uL Eos # (Auto) 300 (0-450) /uL Baso # (Auto) 0 (0-100) /uL PT (10.1-12.7) SECONDS INR (0.9-1.3) APTT 40 H 41 H (26-36) SECONDS Sodium (137-145) mmol/L Potassium (3.4-5.1) mmol/L Chloride (98-107) mmol/L Carbon Dioxide (22-32) mmol/L BUN (9-20) mg/dL Creatinine (0.66-1.25) mg/dL Estimated GFR (>60) mL/min BUN/Creatinine Ratio (6-22) Glucose (70-100) mg/dL Calcium (8.4-10.2) mg/dL Magnesium (1.6-2.3) mg/dL Total Bilirubin (0.2-1.3) mg/dL AST (17-59) IU/L ALT (<50) IU/L Alkaline Phosphatase (38-126) U/L Total Creatine Kinase (55-170) U/L CK-MB (CK-2) (<2.37) ng/mL CK-MB (CK-2) Rel Index (1.5-5.0) % Troponin I (0.01-0.034) ng/mL Total Protein (6.3-8.2) g/dL Albumin (3.5-5.0) g/dL Globulin (1.7-4.1) g/dL Albumin/Globulin Ratio (1.0-2.8) Lipase (23-300) U/L SARS-CoV-2 (PCR) (Negative) 06/16/22 Range/Units 04:29 WBC (4.5-11.0) X10^3/uL RBC (4.5-5.9) X10^6/uL Hgb (13.5-17.5) g/dL Hct (41-53) % MCV (80-100) fL MCH (26-34) PG MCHC (30-36) % RDW (11.6-14.8) % Plt Count (150-400) X10^3/uL Neut % (Auto) (50-75) % Lymph % (Auto) (25-40) % [place] % (Auto) (3-14) % Eos % (Auto) (2-4) % Baso % (Auto) (0-2) % Neut # (Auto) (5818-0998) /uL Lymph # (Auto) (4703-8765) /uL [place] # (Auto) (0-900) /uL Eos # (Auto) (0-450) /uL Baso # (Auto) (0-100) /uL PT (10.1-12.7) SECONDS INR (0.9-1.3) APTT (26-36) SECONDS Sodium 135 L (137-145) mmol/L Potassium 3.9 (3.4-5.1) mmol/L Chloride 104 (98-107) mmol/L Carbon Dioxide 24 (22-32) mmol/L BUN 13 (9-20) mg/dL Creatinine 0.76 (0.66-1.25) mg/dL Estimated GFR > 60 (>60) mL/min BUN/Creatinine Ratio 17.1 (6-22) Glucose 113 H (70-100) mg/dL Calcium 9.0 (8.4-10.2) mg/dL Magnesium (1.6-2.3) mg/dL Total Bilirubin (0.2-1.3) mg/dL AST (17-59) IU/L ALT (<50) IU/L Alkaline Phosphatase (38-126) U/L Total Creatine Kinase (55-170) U/L CK-MB (CK-2) (<2.37) ng/mL CK-MB (CK-2) Rel Index (1.5-5.0) % Troponin I 0.015 (0.01-0.034) ng/mL Total Protein (6.3-8.2) g/dL Albumin (3.5-5.0) g/dL Globulin (1.7-4.1) g/dL Albumin/Globulin Ratio (1.0-2.8) Lipase (23-300) U/L SARS-CoV-2 (PCR) (Negative) Imaging Data Chest x-ray: Radiologist's Impression: [address] [id number] XRay Report PROCEDURE:? XR CHEST 1V ? INDICATIONS:? chest pain ? TECHNIQUE:? One view of the chest was acquired.? ? COMPARISON:? [facility], CR, XR CHEST 2V, 03/16/2021, 16:55. ? FINDINGS:? ? Surgical changes and devices:? Surgical hardware in visualized mid cervical spine is seen.? ? Lungs and pleura:? Lungs are clear.? No pleural effusions or pneumothorax.? ? Mediastinum:? Mediastinal contours appear normal.? Heart size is normal.? ? Bones and chest wall:? No suspicious bony lesions.? Overlying soft tissues appear unremarkable.? ? IMPRESSION:? No acute cardiopulmonary pathology. ? ? Dictated by: Raymond Briceño M.D. on 06/14/2022 at 21:02 ? ? Approved by: Raymond Briceño M.D. on 06/14/2022 at 21:03?? ECG Data Interpretation: Presentation EKG Sinus rhythm Ventricular rate is 77 Normal QRS Normal QTC No ST elevations Repeat EKG Sinus rhythm Ventricular rate of 78 Normal QRS Normal QTC LVH New biphasic T-wave in V2 New T-wave inversions V3 V4 V5 V6 No ST elevations 10:00 am 06/15/22 Sinus rhythm at a rate of 65 No significant change from prior MDM Narrative Medical decision making narrative: Patient is symptom free. Blood pressure has improved. Troponins now downtrending. Remains on heparin. Morning labs with repeat EKG ordered for later today when he has his PTT drawn because of his heparin. Attempted to contact multiple places for transfer for Cardiology and presumed intervention given his presentation however no facilities had bed availability. He is on wait list that [facility] and also [facility]. Will continue to keep emergency department until placement can be found. Care turned over to day provider for disposition. 930 06/15 Care is assumed. Phone call to [facility], they will look of bed availability and return call. EKG is unchanged. Labs are pending this morning. Patient remains pain-free at this time. Discharge Plan Departure Patient Disposition: [facility] Clinical Impression: Unstable angina, Hypertension
[2022-06-14 21:03] LABS: Alanine Aminotransferase 38 IU/L (<50); Albumin 4.7 g/dL (3.5-5.0); Albumin Globulin Ratio 1.1 (1.0-2.8); Alkaline Phosphatase 52 U/L (38-126); Aspartate Aminotransferase 57 IU/L (17-59); BUN Creatinine Ratio 13.6 (6-22); Bilirubin Total 1.2 mg/dL (0.2-1.3); Blood Urea Nitrogen 11 mg/dL (9-20); Calcium 9.9 mg/dL (8.4-10.2); Carbon Dioxide 26 mmol/L (22-32); Chloride 99 mmol/L (98-107); Creatine Kinase 107 U/L (55-170); Estimated Glomerular Filt Rate > 60 mL/min (>60); Globulin 4.1 g/dL (1.7-4.1); Glucose 117 mg/dL (70-100); HEMOLYSIS 16 (0-50); Lipase 135 U/L (23-300); Potassium 3.7 mmol/L (3.4-5.1); Sodium 136 mmol/L (137-145); Total Protein 8.8 g/dL (6.3-8.2)
[2022-06-14 21:07] LABS: Add Manual Diff / Slide Review NO; Basophils Absolute Auto 100 /uL (0-100); Basophils Percent Auto 0.6 % (0-2); Eosinophils Absolute Auto 200 /uL (0-450); Eosinophils Percent Auto 1.9 % (2-4); Hematocrit 46.1 % (41-53); Lymphocytes Absolute Auto 3300 /uL (1100-4500); Lymphocytes Percent Auto 29.7 % (25-40); Mean Corpuscular HGB Conc 34.7 % (30-36); Mean Corpuscular Hemoglobin 32.3 PG (26-34); Mean Corpuscular Volume 93.3 fL (80-100); Monocytes Absolute Auto 1100 /uL (0-900); Monocytes Percent Auto 10.1 % (3-14); Neutrophils Absolute Auto 6400 /uL (1500-7000); Neutrophils Percent Auto 57.7 % (50-75); Platelet Count 173 X10^3/uL (150-400); Red Blood Cell Count 4.94 X10^6/uL (4.5-5.9); Red Cell Distribution Width 12.8 % (11.6-14.8); White Blood Cell Count 11.1 X10^3/uL (4.5-11.0)
[2022-06-14] MEDS: ASPIRIN 81 MG CHEW TAB 324 MG PO (21:13)
[2022-06-14 21:14] LABS: Troponin I 0.035 ng/mL (0.01-0.034)
[2022-06-14 21:18] LABS: Creatine Kinase MB 1.06 ng/mL (<2.37)
[2022-06-14 21:46] LABS: INR 1.1 (0.9-1.3); Prothrombin Time 12.9 SECONDS (10.1-12.7)
[2022-06-14 21:55] LABS: PTT Partial Thromboplastin Tim 33 SECONDS (26-36)
[2022-06-14] MEDS: HEPARIN 5,000 UNIT/ML VIAL 5000 UNIT IV (21:55)
[2022-06-14] MEDS: HEPARIN DRIP 25,000 UNIT/500 ML IV.SOLN 27.216 UNIT IV (21:55)
--- NOTE | 2022-06-14 21:56 | PC.NURSE ---
Heparin does verified per LUCIA Nelson prior to giving medication
[2022-06-14 22:07] LABS: COVID19 -Nasal RAPID Negative (Negative)
[2022-06-14 23:11] LABS: Creatine Kinase 93 U/L (55-170)
[2022-06-15] VITALS (95 sets, daily range): BP systolic 114–162; BP diastolic 60–117; PULSE 53–87; RESP 11–34; O2SAT 94–99
[2022-06-15 04:10] LABS: Creatine Kinase 74 U/L (55-170)
[2022-06-15 04:21] LABS: PTT Partial Thromboplastin Tim 158 SECONDS (26-36)
[2022-06-15 04:22] LABS: Troponin I 0.049 ng/mL (0.01-0.034)
--- NOTE | 2022-06-15 05:23 | PC.NURSE ---
heparin dose changed and verified per LUCIA Nelson
[2022-06-15 10:06] LABS: Add Manual Diff / Slide Review NO; Basophils Absolute Auto 0 /uL (0-100); Basophils Percent Auto 0.7 % (0-2); Eosinophils Absolute Auto 200 /uL (0-450); Eosinophils Percent Auto 2.6 % (2-4); Hematocrit 46.1 % (41-53); Hemoglobin 16.1 g/dL (13.5-17.5); Lymphocytes Absolute Auto 2200 /uL (1100-4500); Lymphocytes Percent Auto 34.7 % (25-40); Mean Corpuscular HGB Conc 34.8 % (30-36); Mean Corpuscular Hemoglobin 32.5 PG (26-34); Mean Corpuscular Volume 93.4 fL (80-100); Monocytes Absolute Auto 700 /uL (0-900); Monocytes Percent Auto 10.6 % (3-14); Neutrophils Absolute Auto 3300 /uL (1500-7000); Neutrophils Percent Auto 51.4 % (50-75); Platelet Count 140 X10^3/uL (150-400); Red Blood Cell Count 4.94 X10^6/uL (4.5-5.9); Red Cell Distribution Width 12.6 % (11.6-14.8); White Blood Cell Count 6.4 X10^3/uL (4.5-11.0)
[2022-06-15 10:18] LABS: PTT Partial Thromboplastin Tim 45 SECONDS (26-36)
[2022-06-15 10:20] LABS: BUN Creatinine Ratio 15.1 (6-22); Blood Urea Nitrogen 11 mg/dL (9-20); Calcium 9.4 mg/dL (8.4-10.2); Carbon Dioxide 28 mmol/L (22-32); Chloride 103 mmol/L (98-107); Estimated Glomerular Filt Rate > 60 mL/min (>60); Glucose 110 mg/dL (70-100); HEMOLYSIS < 15 (0-50); Potassium 4.1 mmol/L (3.4-5.1); Sodium 138 mmol/L (137-145)
[2022-06-15 10:32] LABS: Troponin I 0.021 ng/mL (0.01-0.034)
--- NOTE | 2022-06-15 10:35 | PC.NURSE ---
1035 In checking pump for Heparin dosing adjustment Heparin was not programmed in as guardrails with units/kg/hr dosing and infusion, was found to be running at 20.97 ml/hr 1038 infusion protocol requires increase by 1ml/hr. heparin running now at 9.69 units/kg/hr for rate of 21.97 ml/hr via guardrails with weightbased dose calculation programmed. increase completed and verified by 2 rn's at 1038 am
--- NOTE | 2022-06-15 11:42 | PC.NURSE ---
[facility] called for update on patient status, placement status, and most recent troponin level
[2022-06-15 16:21] LABS: PTT Partial Thromboplastin Tim 44 SECONDS (26-36)
[2022-06-15] MEDS: HEPARIN DRIP 25,000 UNIT/500 ML IV.SOLN 22.977 UNIT IV (20:15)
[2022-06-15 22:17] LABS: PTT Partial Thromboplastin Tim 40 SECONDS (26-36)
[2022-06-16] VITALS (16 sets, daily range): BP systolic 123–158; BP diastolic 73–91; PULSE 56–76; RESP 11–22; O2SAT 94–98
[2022-06-16 04:45] LABS: Add Manual Diff / Slide Review NO; Basophils Absolute Auto 0 /uL (0-100); Basophils Percent Auto 0.5 % (0-2); Eosinophils Absolute Auto 300 /uL (0-450); Eosinophils Percent Auto 3.4 % (2-4); Hematocrit 43.3 % (41-53); Hemoglobin 14.9 g/dL (13.5-17.5); Lymphocytes Absolute Auto 2900 /uL (1100-4500); Lymphocytes Percent Auto 38.3 % (25-40); Mean Corpuscular HGB Conc 34.4 % (30-36); Mean Corpuscular Hemoglobin 32.1 PG (26-34); Mean Corpuscular Volume 93.3 fL (80-100); Monocytes Absolute Auto 800 /uL (0-900); Monocytes Percent Auto 11.1 % (3-14); Neutrophils Absolute Auto 3500 /uL (1500-7000); Neutrophils Percent Auto 46.7 % (50-75); Platelet Count 138 X10^3/uL (150-400); Red Blood Cell Count 4.64 X10^6/uL (4.5-5.9); Red Cell Distribution Width 12.6 % (11.6-14.8); White Blood Cell Count 7.5 X10^3/uL (4.5-11.0)
[2022-06-16 04:51] LABS: PTT Partial Thromboplastin Tim 41 SECONDS (26-36)
[2022-06-16 04:52] LABS: BUN Creatinine Ratio 17.1 (6-22); Blood Urea Nitrogen 13 mg/dL (9-20); Carbon Dioxide 24 mmol/L (22-32); Chloride 104 mmol/L (98-107); Estimated Glomerular Filt Rate > 60 mL/min (>60); Glucose 113 mg/dL (70-100); HEMOLYSIS < 15 (0-50); Potassium 3.9 mmol/L (3.4-5.1); Sodium 135 mmol/L (137-145)
[2022-06-16 05:04] LABS: Troponin I 0.015 ng/mL (0.01-0.034)
== END 2022-06-16 06:28 | disposition short-term general hospital (02) ==
PROVIDERS: Emergency Provider Emergency Medicine
DX: I20.0 Unstable angina (principal); I10 Essential (primary) hypertension; R06.02 Shortness of breath; Z20.822 Contact with and (suspected) exposure to COVID-19
CPT/HCPCS: 36415; 71045; 80048; 80053; 82550; 82553; 83690; 83735; 84484; 85025; 85610; 85730; 87635; 93005; 96365; 96366; 96375; 99284; C9803; J1644

== ENCOUNTER → 2023-07-09 10:52 | Outpatient (CLI) | payer OTHER, SELFPAY ==
[2023-07-09 12:51] LABS: Alanine Aminotransferase 19 IU/L (<50); Albumin 4.6 g/dL (3.5-5.0); Albumin Globulin Ratio 1.3 (1.0-2.8); Alkaline Phosphatase 52 U/L (38-126); Aspartate Aminotransferase 33 IU/L (17-59); BUN Creatinine Ratio 17.1 (6-22); Bilirubin Total 0.8 mg/dL (0.2-1.3); Blood Urea Nitrogen 12 mg/dL (9-20); Calcium 9.7 mg/dL (8.4-10.2); Carbon Dioxide 24 mmol/L (22-32); Chloride 103 mmol/L (98-107); Cholesterol 144 mg/dL (140-199); Estimated Glomerular Filt Rate > 60 mL/min (>60); Globulin 3.6 g/dL (1.7-4.1); Glucose 105 mg/dL (70-100); HDL Cholesterol 54 mg/dL (40-60); HEMOLYSIS < 15 (0-50); LDL Cholesterol Calculated 77 mg/dL (<100); Potassium 4.3 mmol/L (3.4-5.1); Sodium 136 mmol/L (137-145); Total Protein 8.2 g/dL (6.3-8.2); Triglycerides 66 mg/dL (35-150); VLDL Cholesterol Calculated 13 mg/dL (2-30)
== END ==
PROVIDERS: PCP Nurse Practitioner; Referring Provider Nurse Practitioner; Visit Provider Nurse Practitioner
DX: I25.10 Atherosclerotic heart disease of native coronary artery without angina pectoris (principal)
CPT/HCPCS: 36415; 80053; 80061